=== PATIENT | male | born 1955 | race Caucasian/White ===

== ENCOUNTER 2021-01-06 10:35 | Emergency (ER) | payer BC, SELFPAY ==
--- NOTE | ~2021-01-06 | XR_ITS ---
XR hand RT min 3V 01/06/2021 11:13 INDICATION: Right third finger deformity PROCEDURE: 3 views right hand COMPARISON: No prior studies for comparison. FINDINGS: Fracture, dislocation or subluxation is not identified. There is flexion at the third proxi mal interphalangeal joint. No associated fracture identified. The soft tissues appear within normal l imits. No foreign bodies are identified. IMPRESSION: 1: No acute fracture. Reviewed, dictated and finalized at location A. IMPRESSION: 1: No acute fracture.
[2021-01-06 10:58] VITALS: BP 165/92; PULSE 107; RESP 16; TEMP 37.1; O2SAT 98
--- NOTE | 2021-01-06 11:03 | ED.GENADULT ---
HPI - General Adult General Chief complaint: Extremity Injury, Upper Stated complaint: possible middle rt finger fracture Source: patient Mode of arrival: ambulatory History of Present Illness HPI narrative: Misha is a 65M with a PMH of diabetes that presented to the ED with pain and deformity of his right 3rd digit. He got up in the middle of the night, had a hypoglycemic episode, went down and hurt his finger. It is swollen and deformed but he can move it. He has no other concerns. Related Data Home Medications Medication Instructions Recorded Confirmed Unable to Obtain Home Medications 01/06/21 01/06/21 Allergies Allergy/AdvReac Type Severity Reaction Status Date / Time No Known Allergies Allergy Verified 01/06/21 10:56 Review of Systems Constitutional: Constitutional: Reports no additional constitutional complaints Eyes: Eyes: Reports no additional eye complaints ENT: Reports system reviewed and no additional complaints, except as documented Cardiovascular: Cardiovascular: Reports no additional cardiovascular complaints Respiratory: Respiratory: Reports no additional respiratory complaints Gastrointestinal: Gastrointestinal: Reports no additional gastrointestinal complaints Genitourinary: Genitourinary: Reports no additional male genitourinary complaints Musculoskeletal: Musculoskeletal: Reports as per HPI Integumentary/Breasts: Skin/Breast: Reports system reviewed and no additional complaints, except as docu Neurologic: Reports system reviewed and no additional complaints, except as documented Psychiatric: Psychiatric: Reports no additional psychiatric complaints Endocrine: Endocrine: Reports no additional endocrine complaints Hematologic/Lymphatic: Hematologic/Lymphatic: Reports no additional hematologic/lymphatic complaints Allergic/Immunologic: Allergic/Immunologic: Reports no additional allergic/immunologic complaints Exam Const: General: no acute distress and alert Orientation/consciousness: patient oriented x3 Limitations: No altered mental status HENMT: Head: normal to inspection Eyes: Conjunctivae: conjunctivae normal Pupils: Equal, round and reactive pupils present Neck: Neck: normal visual inspection Chest: Chest palpation & inspection: normal inspection of the chest Resp: Effort & Inspection: normal respiratory effort and not labored Cardio: Rate: regular rate Skin: General skin exam: normal color Rashes: no rashes Neuro: General: patient oriented x3 and moves all extremities Extrem: Other: Right middle finger was swollen TTP and had a medial deviation. Sensation is intact and he can move it Psych: Appearance: grossly normal Mental Status: mental status grossly normal Course Course Emergency Course: He declined any pain meds. XR hand RT min 3V 01/06/2021 11:13 INDICATION: Right third finger deformity PROCEDURE: 3 views right hand COMPARISON: No prior studies for comparison. FINDINGS: Fracture, dislocation or subluxation is not identified. There is flexion at the third proximal interphalangeal joint. No associated fracture identified. The soft tissues appear within normal limits. No foreign bodies are identified. IMPRESSION: 1: No acute fracture. Vital Signs Vital signs: Vital Signs Temperature 98.7 F 01/06/21 10:58 Pulse Rate 107 H 01/06/21 10:58 Respiratory Rate 16 01/06/21 10:58 Blood Pressure 165/92 H 01/06/21 10:58 Pulse Oximetry 98 01/06/21 10:58 Temperature 98.7 F 01/06/21 10:58 Pulse Rate 107 H 01/06/21 10:58 Respiratory Rate 16 01/06/21 10:58 Blood Pressure 165/92 H 01/06/21 10:58 Pulse Oximetry 98 01/06/21 10:58 Medical Decision Making Vital Signs Vital Signs: Vital Signs Temperature 98.7 F 01/06/21 10:58 Pulse Rate 107 H 01/06/21 10:58 Respiratory Rate 16 01/06/21 10:58 Blood Pressure 165/92 H 01/06/21 10:58 Pulse Oximetry 98 01/06/21 10:58 Temperature 98.7 F 01/06/21 10:5
== END 2021-01-06 11:51 | disposition home or self-care (01) ==
PROVIDERS: Emergency Provider Family Medicine
DX: S63.612A Unspecified sprain of right middle finger, initial encounter (principal); W19.XXXA Unspecified fall, initial encounter
CPT/HCPCS: 73130; 99282; 99283